=== PATIENT | male | born 1995 | race Caucasian/White ===

== ENCOUNTER 2017-01-17 12:35 | Emergency (ER) | payer SELFPAY ==
[~2017-01-17] VITALS: Ht 182.9 cm; Wt 122.5 kg
[2017-01-17 12:44] VITALS: BP_SYST 141
--- NOTE | 2017-01-17 12:49 | NUR ---
Pt to bed 2
--- NOTE | 2017-01-17 12:58 | NUR ---
Dr. Woods at bedside for evaluation
[2017-01-17 13:25] VITALS: BP_SYST 141
--- NOTE | 2017-01-17 13:25 | NUR ---
Patient given written and verbal discharge instructions and verbalizes understanding. ER MD discussed with patient the results and treatment provided. Patient in stable condition. ID arm band removed. Patient educated on pain management and to follow up with PMD. Pain Scale 0 Opportunity for questions provided and answered.
--- NOTE | 2017-01-17 13:25 | NUR ---
Note undone in EDM - 01/17/17 at 1354 by TORIN Patient given written and verbal discharge instructions and verbalizes understanding. ER discussed with patient the results and treatment provided. Patient in stable condition. ID arm band removed. Rx of MYLANTA SUSPENSION,PRILOSEC given. Patient educated on pain management and to follow up with PMD. Pain Scale 2. Opportunity for questions provided and answered.
== END 2017-01-17 13:25 | disposition home or self-care (01) ==
LOC: SED 12:35
DX: Z77.098 Contact with and (suspected) exposure to other hazardous, chiefly nonmedicinal, chemicals (principal)
CPT/HCPCS: 99281

== ENCOUNTER 2018-11-15 05:53 | Emergency (ER) | payer SELFPAY ==
[~2018-11-15] VITALS: Ht 182.9 cm; Wt 117.9 kg
[2018-11-15 06:50] VITALS: BP_SYST 140
[2018-11-15 09:32] VITALS: BP_SYST 132
== END 2018-11-15 09:32 | disposition home or self-care (01) ==
LOC: SED 05:53
DX: R10.9 Unspecified abdominal pain (principal)
CPT/HCPCS: 74021; 99283

== ENCOUNTER 2023-06-10 04:11 | Emergency (ER) | payer BC, OTHER ==
[~2023-06-10] VITALS: Ht 182.9 cm; Wt 115.7 kg
[2023-06-10 04:14] VITALS: BP_SYST 140; PULSE 116; RESP 18; TEMP 97.3; O2SAT 98
[2023-06-10] MEDS ORDERED: DIPHENHYDRAMINE INJ 50 MG/ML VIAL IM ONE (04:45)
[2023-06-10 05:00] VITALS: BP_SYST 140; PULSE 116; RESP 18; TEMP 97.3; O2SAT 98
[2023-06-10] MEDS ORDERED: MED4 PO (05:44)
[2023-06-10] MEDS ORDERED: FEXO180T94 PO (05:44)
== END 2023-06-10 05:53 | disposition home or self-care (01) ==
LOC: SED 04:11
DX: L50.9 Urticaria, unspecified (principal); L29.9 Pruritus, unspecified; Z79.899 Other long term (current) drug therapy
CPT/HCPCS: 99283; 96372; J1200